=== PATIENT | male | born 2000 | race African-American/Black ===

== ENCOUNTER 2023-07-16 11:03 | Emergency (ER) | payer SELFPAY ==
[~2023-07-16] VITALS: Ht 175.3 cm; Wt 68.0 kg
[2023-07-16 11:14] VITALS: BP 131/68; PULSE 82; RESP 20; TEMP 98; O2SAT 98
== END 2023-07-16 13:38 | disposition left against medical advice (07) ==
LOC: ER 13:03
DX: R10.9 Unspecified abdominal pain (principal); Z53.21 Procedure and treatment not carried out due to patient leaving prior to being seen by health care provider
CPT/HCPCS: 99281